=== PATIENT | female | born 2000 | race Two or more races ===

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

== ENCOUNTER 2022-11-27 07:16 | Emergency (ER) | payer MEDICAID ==
[~2022-11-27] VITALS: Ht 160 cm; Wt 60.0 kg
[2022-11-27] MEDS ORDERED: LEVETIRACETAM 1000MG PREMIX 100 ML IV ONE (07:45)
[2022-11-27] MEDS ORDERED: SODIUM CHLORIDE 0.9% 1,000 ML IV ONE (07:45)
[2022-11-27 08:14] LABS: BASOPHILS % 0.2 % (0.0-2.0); EOSINOPHILS % 0.5 % (0.0-5.0); HEMATOCRIT. 39.2 % (36.0-48.0); LYMPHOCYTES % 18.2 % (20.0-50.0); MEAN CORPUSCULAR HEMOGLOBIN 28.1 pg (28.0-32.0); MEAN CORPUSCULAR VOLUME 84.7 fL (81.0-99.0); MONOCYTES % 6.9 % (2.0-8.0); NEUTROPHILS % 74.2 % (40.0-76.0); PLATELET 237 x1000/uL (130-400); RED BLOOD CELL COUNT 4.63 mill/uL (4.2-5.4); RED CELL DISTRIBUTION WIDTH 14.3 % (11.6-14.6)
[2022-11-27 08:27] LABS: CHLORIDE 109 mEq/L (98-107)
[2022-11-27 08:28] LABS: HCG SCREEN NEGATIVE
[2022-11-27] MEDS ORDERED: ACETAMINOPHEN 325MG TABLET PO ONE (08:30)
[2022-11-27] MEDS ORDERED: ONDANSETRON HCL 4MG/2ML INJ IV ONE (08:30)
[2022-11-27 08:35] LABS: ETHANOL BLOOD < 10 mg/dL
[2022-11-27] MEDS ORDERED: POTASSIUM CHLORIDE 20MEQ TABLET SR PO NR (09:00)
[2022-11-27 10:35] VITALS: BP 98/62
[2022-11-27] MEDS ORDERED: KEPP500 MT ×2 (11:46→12:40)
[2022-11-27 13:33] LABS: CLARITY URINE CLOUDY (CLEAR); COLOR URINE YELLOW (YELLOW); KETONES URINE 2+ (NEGATIVE); LEUKOCYTE ESTERASE URINE NEGATIVE (NEGATIVE); NITRITE URINE NEGATIVE (NEGATIVE); OCCULT BLOOD URINE 1+ (NEGATIVE); PH URINE 6.5 (4.5-8.0); PROTEIN URINE 2+ (NEGATIVE); SPECIFIC GRAVITY URINE 1.026 (1.005-1.030); UROBILINOGEN URINE 0.2 E.U./dL (0.2-1.0)
[2022-11-27 13:58] LABS: *AMPHETAMINES SCREEN URINE NEGATIVE (NEGATIVE); *BARBITURATES SCREEN URINE NEGATIVE (NEGATIVE); *BENZODIAZEPINES SCREEN URINE NEGATIVE (NEGATIVE); *COCAINE SCREEN URINE NEGATIVE (NEGATIVE); CANNABINOID URINE SCREEN NEGATIVE (NEGATIVE); METHADONE URINE SCREEN NEGATIVE (NEGATIVE); OPIATES URINE SCREEN NEGATIVE (NEGATIVE); PHENCYCLIDINE URINE SCREEN NEGATIVE (NEGATIVE)
== END 2022-11-27 12:30 | disposition home or self-care (01) ==
LOC: ER 07:29
DX: R56.9 Unspecified convulsions (principal); E87.6 Hypokalemia; I49.9 Cardiac arrhythmia, unspecified; R51.9 Headache, unspecified; R42 Dizziness and giddiness
CPT/HCPCS: 36415; 70450; 80053; 80305; 80320; 81003; 84703; 85025; 87086; 93005; 96365; 96375; 99285; J1953; J2405; J7030; Z7610; G0480

== ENCOUNTER 2023-08-27 15:12 | Emergency (ER) | payer MEDICAID, OTHER ==
[~2023-08-27] VITALS: Ht 162.6 cm; Wt 75.0 kg
[~2023-08-27 15:12] MED LIST changes: +KEPP500 MT
[2023-08-27 15:34] VITALS: BP 115/78; PULSE 77; RESP 16; TEMP 98.6; O2SAT 98
[2023-08-27] MEDS ORDERED: DIPHENHYDRAMINE 50MG/ML VIAL IV ONE (16:30)
[2023-08-27] MEDS ORDERED: SODIUM CHLORIDE 0.9% 1,000 ML IV ONE (16:30)
[2023-08-27] MEDS ORDERED: DIPHENHYDRAMINE 50MG/ML VIAL IV NR (16:30)
[2023-08-27] MEDS ORDERED: METOCLOPRAMIDE HCL 10MG/2ML VIAL IV ONE (16:30)
[2023-08-27] MEDS ORDERED: METOCLOPRAMIDE HCL 10MG/2ML VIAL IV NR (16:30)
== END 2023-08-27 23:41 | disposition left against medical advice (07) ==
LOC: ER 15:12
DX: G43.909 Migraine, unspecified, not intractable, without status migrainosus (principal); Z53.21 Procedure and treatment not carried out due to patient leaving prior to being seen by health care provider
CPT/HCPCS: 99281; J7030; Z7610 ×2; J1200; J2765